=== PATIENT | male | born 1950 | race Caucasian/White ===

== ENCOUNTER 2017-06-21 22:09 | Emergency (ER) | payer OTHER, MEDICARE ==
[2017-06-21 23:00] LABS: ADD MAN DIFF? NO
[2017-06-21] MEDS: IV NORMAL SALINE 1000ML BAG 1,000 ML IV (23:01)
[2017-06-21 23:02] LABS: BASO % 0 % (0-3); EOS # 0.1 x10^3/uL (0.0-0.7); EOS % 1 % (0-3); HEMATOCRIT 46.8 % (39.0-53.0); HEMOGLOBIN 15.4 g/dL (13.0-17.5); LYMPH # 1.2 x10^3/uL (1.0-4.8); LYMPH % 11 % (24-48); MEAN CORPUSCULAR HEMOGLOBIN 32 pg (25-35); MEAN CORPUSCULAR HGB CONC 33 g/dL (31-37); MEAN CORPUSCULAR VOLUME 96 fL (79-100); MONO # 0.7 x10^3/uL (0.0-1.1); MONO % 7 % (0-9); NEUT # 9.1 x10^3uL (1.8-7.7); NEUT % 82 % (31-73); PLATELET COUNT 282 x10^3/uL (140-400); RED BLOOD COUNT 4.87 x10^6/uL (4.30-5.70); RED CELL DISTRIBUTION WIDTH 13.8 % (11.5-14.5); WHITE BLOOD COUNT 11.1 x10^3/uL (4.0-11.0)
[2017-06-21 23:21] LABS: ALBUMIN 4.5 g/dL (3.4-5.0); ALBUMIN/GLOBULIN RATIO 1.1 (1.0-1.7); ALK PHOS 84 U/L (46-116); ALT (SGPT) 29 U/L (16-63); ANION GAP 14 (6-14); AST (SGOT) 18 U/L (15-37); CALCIUM 9.4 mg/dL (8.5-10.1); CARBON DIOXIDE 24 mmol/L (21-32); CHLORIDE 104 mmol/L (98-107); CREATININE 1.4 mg/dL (0.7-1.3); GFR 50.7; GLUCOSE 175 mg/dL (70-99); LIPASE 138 U/L (73-393); POTASSIUM 4.1 mmol/L (3.5-5.1); SODIUM 142 mmol/L (136-145); TOTAL BILIRUBIN 0.7 mg/dL (0.2-1.0); TOTAL PROTEIN 8.5 g/dL (6.4-8.2)
[2017-06-21 23:33] LABS: BLOOD UREA NITROGEN 34 mg/dL (8-26); BUN/CREATININE RATIO 24 (6-20)
[2017-06-22] MEDS: IOHEXOL 300 MG/ML 100ML VIAL. IV (00:27)
[2017-06-22] MEDS: IV NORMAL SALINE 1000ML BAG 1,000 ML IV (00:38)
[2017-06-22] MEDS ORDERED: CONTRAST GIVEN MC (00:45)
== END 2017-06-22 01:50 | disposition home or self-care (01) ==
LOC: ER 06-22 01:50
DX: R11.2 Nausea with vomiting, unspecified (principal); R19.7 Diarrhea, unspecified; I95.9 Hypotension, unspecified; I48.91 Unspecified atrial fibrillation; E78.00 Pure hypercholesterolemia, unspecified; I10 Essential (primary) hypertension; Z90.49 Acquired absence of other specified parts of digestive tract
CPT/HCPCS: 36415; 71045; 74177; 80053; 83690; 85025; 93005; 96360; 96361; 99285-25; J7030; Q9967

== ENCOUNTER → 2020-03-15 | Outpatient (CLI) | payer BC ==
[2017-06-22 01:36] VITALS: BP 131/81
[~2020-03-15] MED LIST: ONDA4TAB7 PO
--- NOTE | 2020-03-15 11:06 | KCIC ---
Chest radiograph 03/15/2020 9:33 AM INDICATION: Clearance for cataract surgery COMPARISON: 06/21/2017 TECHNIQUE: Frontal and lateral views of the chest are provided. FINDINGS: The cardiomediastinal silhouette is within normal limits. There are no pleural effusions. There is no pulmonary vascular congestion. There is no pneumothorax. The lungs are clear. Nodular opacity in the right midlung favors a button measuring 1.2 cm. No significant osseous abnormality is identified. IMPRESSION: No acute cardiopulmonary process. Electronically signed by: Antonette Rehman MD (03/15/2020 11:04 AM) [id number]
== END ==
LOC: KCIC 09:30
PROVIDERS: ATTEND Family Medicine
DX: J18.9 Pneumonia, unspecified organism (principal); R91.1 Solitary pulmonary nodule
CPT/HCPCS: 71046